=== PATIENT | female | born 1960 | race Caucasian/White ===

== ENCOUNTER 2025-08-21 21:30 | Emergency (ER) | payer BC, OTHER ==
[2025-08-21] MEDS ORDERED: Orphenadrine Citrate 60 MG/2 ML VIAL ONE (22:27)
[2025-08-21 22:59] LABS: #Basophils 0.04 10x3/uL (0.0-0.2); #Eosinophils 0.03 10x3/uL (0.0-0.7); #Monocytes 0.60 10x3/uL (0.11-0.59); #Neutrophils 5.90 10x3/uL (1.40-6.50); %Basophils 0.5 % (0.0-1.0); %Eosinophils 0.3 % (0.0-10.0); %Lymphocytes 25.2 % (21.0-51.0); %Monocytes 6.8 % (0.0-10.0); %Neutrophils 66.7 % (42.0-75.0); Hematocrit 35.9 % (36.0-47.0); Hemoglobin 11.6 g/dL (12.0-16.0); Mean Corpuscular Hemoglobin 29.4 pg (27.0-31.0); Mean Corpuscular Volume 91.1 fL (78.0-98.0); Platelet Count 225 10x3/uL (130-400); Red Blood Cell (RBC) Count 3.94 mill/uL (4.20-5.40); White Blood Cell (WBC) Count 8.84 10x3/uL (4.8-10.8)
[2025-08-21 23:16] LABS: ALT (SGPT) 12 U/L (Less than 34); AST (SGOT) 16 U/L (11-34); Albumin 4.1 g/dL (3.1-4.5); Alkaline Phosphatase 76 U/L (40-110); Anion Gap 12 mmol/L (10-20); BUN (Urea Nitrogen) 12 mg/dL (9.8-20.1); Bilirubin, Total 0.2 mg/dL (0.3-1.2); Calc. Creatinine Clearance 0 mL/min (70-130); Calcium 9.5 mg/dL (7.8-10.44); Carbon Dioxide 24 mmol/L (23-31); Chloride 110 mmol/L (98-107); Globulin 2.5 g/dL (2.4-3.5); Glucose 145 mg/dL (80-115); Potassium 3.9 mmol/L (3.5-5.1); Sodium 142 mmol/L (136-145)
[2025-08-21] MEDS ORDERED: HYDROcodone/Acetaminophen 5/325 mg Tablet ONE (23:42)
== END 2025-08-22 01:00 | disposition home or self-care (01) ==
LOC: ERS 21:30
DX: M54.2 Cervicalgia (principal); M25.512 Pain in left shoulder; R29.91 Unspecified symptoms and signs involving the musculoskeletal system; F17.210 Nicotine dependence, cigarettes, uncomplicated; Z55.6 Problems related to health literacy
CPT/HCPCS: 36415; 72125; 80053; 84484; 85025; 93005; 96372; J2360